=== PATIENT | male | born 1950 | race Caucasian/White ===

== ENCOUNTER 2022-11-15 12:07 | Outpatient (CLI) | payer MEDICARE ==
[2022-11-15 12:59] LABS: Hemoglobin 14.1 g/dL (13.5-17.5); Mean Corpuscular HGB CONC 33.2 g/dL (32.0-36.0); Mean Corpuscular Hemoglobin 29.3 pg (27.0-33.0); Mean Corpuscular Volume 88.4 fl (81.2-95.1); Mean Platelet Volume 9.2 fl (7.4-10.4); Platelet Count 380 10x3/uL (150-450); RBC Distribution Width 14.3 % (11.5-14.5); Red Blood Cell (RBC) Count 4.81 10x6/uL (4.32-5.72); White Blood Cell (WBC) Count 10.3 10x3/uL (3.5-10.5)
[2022-11-15 13:05] LABS: Bilirubin Neg (Negative); Blood, Urine 25 (Negative); Clarity Clear (Clear); Glucose, Urine (Dipstick) Normal (Negative); Ketone, Urine Negative (Negative); Leukocyte 100 (Negative); Nitrite Negative (Negative); Protein, Urine (Dipstick) Negative (Neg-Trace); Specific Gravity, Urine 1.015 (1.005-1.030); Urobilinogen Normal mg/dL (Less than 2)
[2022-11-15 13:26] LABS: Anion Gap 16 mmol/L (10-20); BUN (Urea Nitrogen) 18 mg/dL (8.4-25.7); Calc. Creatinine Clearance 0 mL/min (70-130); Calcium 10.7 mg/dL (7.8-10.44); Carbon Dioxide 27 mmol/L (23-31); Chloride 102 mmol/L (98-107); Estimated GFR 66; Glucose 126 mg/dL (80-115); Potassium 3.9 mmol/L (3.5-5.1); Sodium 141 mmol/L (136-145)
[2022-11-15 13:27] LABS: PTT 26.8 sec (22.0-33.0); Prothrombin Time 10.8 sec (9.5-12.1)
[2022-11-15 13:35] LABS: RBC/HPF 0-3 HPF (0-3)
[2022-11-15 13:36] LABS: Bacteria/HPF None Seen HPF (None Seen); Squamous Epithelial None Seen HPF (0-3)
== END 2022-11-15 12:08 | disposition home or self-care (01) ==
LOC: LABBT 12:07
PROVIDERS: ATTEND Urology
DX: Z01.818 Encounter for other preprocedural examination (principal); N35.913 Unspecified membranous urethral stricture, male
CPT/HCPCS: 80048; 81001; 85027; 85610; 85730; 87086; 93005; 93010

== ENCOUNTER 2022-11-26 05:52 | Day surgery (SDC) | payer OTHER ==
[2022-11-24 15:13] VITALS: BMI 27.5
[2022-11-26] MEDS ORDERED: Iopamidol 30 ML ONE (07:07)
[2022-11-26] MEDS ORDERED: Fentanyl 100 MCG/2 ML VIAL ONE ×2 (07:17)
[2022-11-26] MEDS ORDERED: Levofloxacin 500 mg/D5W 100 ml Premix Bag ONE (07:32)
[2022-11-26] MEDS ORDERED: PROPOFOL 200 MG/20 ML VIAL ONE (07:49)
[2022-11-26] MEDS ORDERED: ePHEDrine 50 MG/ML VIAL ONE (07:49)
[2022-11-26] MEDS ORDERED: Glycopyrrolate 0.2 MG/ML 5 ML SYRINGE ONE (07:49)
[2022-11-26] MEDS ORDERED: Dexamethasone 20 MG/5 ML VIAL ONE (07:49)
[2022-11-26] MEDS ORDERED: Ondansetron PF 4 MG/2 ML Vial ONE (07:49)
[2022-11-26] MEDS ORDERED: Lidocaine 1% PF 5 ML VIAL ONE (07:49)
[2022-11-26] MEDS ORDERED: Oxybutynin 5 MG TAB ONE (08:58)
== END 2022-11-26 11:36 | disposition home or self-care (01) ==
LOC: SDC 05:52
PROVIDERS: ATTEND Urology
PROC: 0T7D8ZZ Dilation of Urethra, Via Natural or Artificial Opening Endoscopic (ICD-10-PCS; principal; 2022-11-26)
DX: N35.913 Unspecified membranous urethral stricture, male (principal); I10 Essential (primary) hypertension; E78.00 Pure hypercholesterolemia, unspecified; Z85.46 Personal history of malignant neoplasm of prostate; Z79.899 Other long term (current) drug therapy
CPT/HCPCS: 74420; C1769; J1100; J1956; J2405; J2704; J3010; J3490; Q9967

== ENCOUNTER 2022-12-09 08:13 | Inpatient (IN) | payer OTHER ==
[2022-12-09] MEDS ORDERED: fentaNYL PF 100 MCG/2 ML SYRINGE ONE (08:24)
[2022-12-09] MEDS ORDERED: Iopamidol 45 ML ONE (08:36)
[2022-12-09] MEDS ORDERED: PHENYLEPHRINE-NS 100 MCG/ML 10 ML SYRINGE ONE (09:16)
[2022-12-09] MEDS ORDERED: Lidocaine 1% PF 5 ML VIAL ONE (09:16)
[2022-12-09] MEDS ORDERED: ePHEDrine 50 MG/ML VIAL ONE (09:16)
[2022-12-09] MEDS ORDERED: Ondansetron PF 4 MG/2 ML Vial ONE (09:16)
[2022-12-09] MEDS ORDERED: PROPOFOL 200 MG/20 ML VIAL ONE (09:16)
[2022-12-09] MEDS ORDERED: HYDROmorphone 2 MG/ML VIAL SLOW IVP PRN (09:34)
[2022-12-09] MEDS ORDERED: Meperidine HCl/PF 25 MG/ML VIAL SLOW IVP PRN (09:34)
[2022-12-09] MEDS ORDERED: Promethazine HCl 25 MG/ML VIAL IM PRN (09:34)
[2022-12-09 09:53] VITALS: BMI 28.4
[2022-12-09] MEDS ORDERED: Ondansetron ODT 4 MG TAB PO PRN (14:02)
[2022-12-09] MEDS ORDERED: Ondansetron PF 4 MG/2 ML Vial IVP PRN (14:02)
[2022-12-09] MEDS ORDERED: HYDROcodone/Acetaminophen 5/325 mg Tablet PO PRN (14:02)
[2022-12-09] MEDS ORDERED: Morphine 4 MG/ML VIAL SLOW IVP PRN (14:05)
[2022-12-09] MEDS ORDERED: Acetaminophen 325 MG TAB PO PRN (19:11)
[2022-12-10] MEDS ORDERED: Sodium Chloride 0.9% 500 ML IV SCH (00:45)
[2022-12-10] MEDS: Sodium Chloride 0.9% 1,000 ML IV SCH ×3 (01:07→15:40)
[2022-12-10 07:11] LABS: Anion Gap 15 mmol/L (10-20); BUN (Urea Nitrogen) 30 mg/dL (8.4-25.7); Calc. Creatinine Clearance 45 mL/min (70-130); Carbon Dioxide 16 mmol/L (23-31); Chloride 108 mmol/L (98-107); Estimated GFR 36; Glucose 204 mg/dL (80-115); Potassium 3.9 mmol/L (3.5-5.1); Sodium 135 mmol/L (136-145)
[2022-12-10 07:31] LABS: Band 34 % (5-11); Hemoglobin 11.6 g/dL (14.0-18.0); Lymphocytes 2 % (21-51); MDiff Complete? YES; Mean Corpuscular HGB CONC 33.6 g/dL (32.0-36.0); Mean Corpuscular Hemoglobin 31.5 pg (27.0-31.0); Mean Corpuscular Volume 93.9 fl (78.0-98.0); Mean Platelet Volume 7.5 fL (7.4-10.4); Monocytes 1 % (0-10); Myelocyte 6 % (0-0); Neutrophil 57 % (42-75); Platelet Count 201 10x3/uL (130-400); Platelet Morphology Comment Appears Adequate; Polychromasia SLIGHT = 2-3 cells (100X) (0-2/hpf); RBC Distribution Width 12.7 % (11.5-14.5); Red Blood Cell (RBC) Count 3.68 mill/uL (4.70-6.10); White Blood Cell (WBC) Count 41.4 10x3/uL (4.8-10.8)
[2022-12-10] MEDS: cefTRIAXone\\ROCEPHIN 1 GM in Sodium Chloride 0.9% 100 ML IVPB SCH (08:34)
[2022-12-11] MEDS: Sodium Chloride 0.9% 1,000 ML IV SCH ×2 (01:04→12:38)
[2022-12-11] MEDS: Sodium Chloride 0.65% Nasal 44 ML BOT EA NARE PRN ×2 (05:21→20:13)
[2022-12-11 07:22] LABS: Anion Gap 12 mmol/L (10-20); BUN (Urea Nitrogen) 21 mg/dL (8.4-25.7); Calc. Creatinine Clearance 74 mL/min (70-130); Carbon Dioxide 20 mmol/L (23-31); Chloride 109 mmol/L (98-107); Estimated GFR 66; Glucose 109 mg/dL (80-115); Potassium 3.6 mmol/L (3.5-5.1); Sodium 137 mmol/L (136-145)
[2022-12-11 08:14] LABS: Band 7 % (5-11); Hemoglobin 11.4 g/dL (14.0-18.0); Lymphocytes 3 % (21-51); MDiff Complete? YES; Mean Corpuscular HGB CONC 33.2 g/dL (32.0-36.0); Mean Corpuscular Hemoglobin 30.8 pg (27.0-31.0); Mean Corpuscular Volume 92.7 fl (78.0-98.0); Mean Platelet Volume 7.9 fL (7.4-10.4); Metamyelocyte 2 % (0-0); Monocytes 1 % (0-10); Neutrophil 87 % (42-75); Platelet Count 195 10x3/uL (130-400); Platelet Morphology Comment Appears Adequate; RBC Distribution Width 12.4 % (11.5-14.5); RBC Morphology Normal; White Blood Cell (WBC) Count 29.3 10x3/uL (4.8-10.8)
[2022-12-11] MEDS: cefTRIAXone\\ROCEPHIN 1 GM in Sodium Chloride 0.9% 100 ML IVPB SCH (08:44)
[2022-12-11] MEDS ORDERED: Sodium Chloride 0.9% 1,000 ML IV SCH (12:45)
[2022-12-11] MEDS: Cefdinir 300 MG CAP PO SCH (20:13)
[2022-12-12 08:39] LABS: Hemoglobin 12.1 g/dL (14.0-18.0); Mean Corpuscular HGB CONC 33.2 g/dL (32.0-36.0); Mean Corpuscular Hemoglobin 30.4 pg (27.0-31.0); Mean Corpuscular Volume 91.7 fl (78.0-98.0); Mean Platelet Volume 7.4 fL (7.4-10.4); Platelet Count 230 10x3/uL (130-400); RBC Distribution Width 12.2 % (11.5-14.5); Red Blood Cell (RBC) Count 3.99 mill/uL (4.70-6.10); White Blood Cell (WBC) Count 17.8 10x3/uL (4.8-10.8)
[2022-12-12] MEDS: Cefdinir 300 MG CAP PO SCH (08:48)
[2022-12-12 08:52] LABS: Anion Gap 13 mmol/L (10-20); BUN (Urea Nitrogen) 15 mg/dL (8.4-25.7); Calc. Creatinine Clearance 89 mL/min (70-130); Calcium 8.7 mg/dL (7.8-10.44); Carbon Dioxide 23 mmol/L (23-31); Chloride 107 mmol/L (98-107); Estimated GFR 81; Glucose 108 mg/dL (80-115); Potassium 3.5 mmol/L (3.5-5.1); Sodium 139 mmol/L (136-145)
[2022-12-12 09:21] LABS: Band 7 % (5-11); Lymphocytes 10 % (21-51); MDiff Complete? YES; Monocytes 2 % (0-10); Neutrophil 80 % (42-75); Platelet Morphology Comment Appears Adequate
[2022-12-12] MEDS ORDERED: Amlodipine 10 MG TAB PO SCH (12:15)
[2022-12-12 12:32] VITALS: BP 177/91
[2022-12-12 12:33] VITALS: TEMP 98.3
== END 2022-12-12 12:41 | disposition home or self-care (01) | DRG 872 ==
LOC: T4-B 08:16
PROVIDERS: ADMIT Internal Medicine; ATTEND Internal Medicine
PROC: BT1D1ZZ Fluoroscopy of Right Kidney, Ureter and Bladder using Low Osmolar Contrast (ICD-10-PCS; principal; 2022-12-09)
PROC: 0TJB8ZZ Inspection of Bladder, Via Natural or Artificial Opening Endoscopic (ICD-10-PCS; 2022-12-09)
PROC: 3E03329 Introduction of Other Anti-infective into Peripheral Vein, Percutaneous Approach (ICD-10-PCS; 2022-12-09)
DX: A41.51 Sepsis due to Escherichia coli [E. coli] (principal); N17.9 Acute kidney failure, unspecified; N13.6 Pyonephrosis; Z16.23 Resistance to quinolones and fluoroquinolones; Z16.29 Resistance to other single specified antibiotic; Z20.822 Contact with and (suspected) exposure to COVID-19; I10 Essential (primary) hypertension; R33.9 Retention of urine, unspecified; E78.00 Pure hypercholesterolemia, unspecified; R73.01 Impaired fasting glucose; Z79.899 Other long term (current) drug therapy; Z85.46 Personal history of malignant neoplasm of prostate; Z92.3 Personal history of irradiation; Z87.442 Personal history of urinary calculi
CPT/HCPCS: 36415; 80048; 83605; 85025; C1758; J0696; J2405; J2704; J3490; J7030; J7050; Q9967

== ENCOUNTER 2022-12-24 09:43 | Day surgery (SDC) | payer OTHER ==
[2022-12-22 12:24] VITALS: BMI 27.5
[2022-12-24] MEDS ORDERED: Iopamidol 0 ML ONE (11:49)
[2022-12-24] MEDS ORDERED: fentaNYL PF 100 MCG/2 ML SYRINGE ONE (11:52)
[2022-12-24] MEDS ORDERED: Sodium Chloride 0.9% 100 ML ONE (11:56)
[2022-12-24] MEDS ORDERED: cefTRIAXone (ROCEPHIN) 1 GM VIAL ONE (11:56)
[2022-12-24] MEDS ORDERED: Lidocaine 1% PF 5 ML VIAL ONE (12:12)
[2022-12-24] MEDS ORDERED: Rocuronium Bromide 10 MG/ML (10ML VIAL) ONE (12:12)
[2022-12-24] MEDS ORDERED: PROPOFOL 200 MG/20 ML VIAL ONE (12:12)
[2022-12-24] MEDS ORDERED: GLYCOPYRROLATE/PF 0.2 MG/ML VIAL ONE (12:12)
[2022-12-24] MEDS ORDERED: Dexamethasone 20 MG/5 ML VIAL ONE (12:12)
[2022-12-24] MEDS ORDERED: NEOSTIGMINE 3 MG/3 ML SYR 3 MG/3 ML SYRINGE ONE (12:12)
[2022-12-24] MEDS ORDERED: ePHEDrine Sulfate 50 MG/10 ML VIAL ONE (12:12)
[2022-12-24] MEDS ORDERED: Ondansetron PF 4 MG/2 ML Vial ONE (12:12)
[2022-12-24] MEDS ORDERED: SUGAMMADEX SODIUM 200 MG/2 ML VIAL ONE (14:22)
[2022-12-24] MEDS ORDERED: Phenazopyridine HCl 100 MG TAB ONE (14:55)
[2022-12-24] MEDS ORDERED: Oxybutynin 5 MG TAB ONE (14:56)
== END 2022-12-24 16:35 | disposition home or self-care (01) ==
LOC: SDC 09:43
PROVIDERS: ATTEND Urology
PROC: 0TC08ZZ Extirpation of Matter from Right Kidney, Via Natural or Artificial Opening Endoscopic (ICD-10-PCS; principal; 2022-12-24)
PROC: 0TC68ZZ Extirpation of Matter from Right Ureter, Via Natural or Artificial Opening Endoscopic (ICD-10-PCS; 2022-12-24)
PROC: 0T768DZ Dilation of Right Ureter with Intraluminal Device, Via Natural or Artificial Opening Endoscopic (ICD-10-PCS; 2022-12-24)
DX: N20.2 Calculus of kidney with calculus of ureter (principal); N35.813 Other membranous urethral stricture, male; N39.46 Mixed incontinence; N13.5 Crossing vessel and stricture of ureter without hydronephrosis; Z87.442 Personal history of urinary calculi; Z79.2 Long term (current) use of antibiotics; Z79.899 Other long term (current) drug therapy; Z79.82 Long term (current) use of aspirin; Z85.46 Personal history of malignant neoplasm of prostate
CPT/HCPCS: 52344; 52356; 74420; 82365; C1747; C1769; C2617; 88300; J0696; J1100; J2405; J2704; J3490; Q9967

== ENCOUNTER 2023-01-02 17:58 | Inpatient (IN) | payer OTHER ==
[~2023-01-02 17:58] MED LIST: Iopamidol 370 76% 100 ML VIAL ONE
[2023-01-02] MEDS ORDERED: Acetaminophen 500 MG TAB ONE (18:30)
[2023-01-02 18:40] LABS: #Eosinphils 0.1 thou/uL (0.0-0.7); #Monocytes 1.5 thou/uL (0.11-0.59); #Neutrophils 11.6 thou/uL (1.40-6.50); %Basophils 0.2 % (0.0-1.0); %Eosinophils 0.3 % (0.0-10.0); %Lymphocytes 7.2 % (21.0-51.0); %Monocytes 10.6 % (0.0-10.0); %Neutrophils 81.7 % (42.0-75.0); Hemoglobin 12.9 g/dL (14.0-18.0); Mean Corpuscular HGB CONC 33.8 g/dL (32.0-36.0); Mean Corpuscular Volume 91.6 fl (78.0-98.0); Mean Platelet Volume 6.9 fL (7.4-10.4); Platelet Count 328 10x3/uL (130-400); RBC Distribution Width 11.5 % (11.5-14.5); Red Blood Cell (RBC) Count 4.17 mill/uL (4.70-6.10); White Blood Cell (WBC) Count 14.2 10x3/uL (4.8-10.8)
[2023-01-02 18:52] LABS: INR-International Normal Ratio 1.2; Prothrombin Time 15.2 sec (12.0-14.7)
[2023-01-02 18:53] LABS: PTT 34.3 sec (22.9-36.1)
[2023-01-02 19:00] LABS: ALT (SGPT) 16 U/L (8-55); AST (SGOT) 19 U/L (5-34); Albumin 3.9 g/dL (3.4-4.8); Alkaline Phosphatase 70 U/L (40-110); Anion Gap 16 mmol/L (10-20); BUN (Urea Nitrogen) 16 mg/dL (8.4-25.7); Bilirubin, Total 0.8 mg/dL (0.2-1.2); Calc. Creatinine Clearance 0 mL/min (70-130); Calcium 9.5 mg/dL (7.8-10.44); Carbon Dioxide 23 mmol/L (23-31); Chloride 97 mmol/L (98-107); Estimated GFR 59; Globulin 4.1 g/dL (2.4-3.5); Glucose 156 mg/dL (80-115); Lipase 10 U/L (8-78); Potassium 3.9 mmol/L (3.5-5.1); Sodium 132 mmol/L (136-145)
[2023-01-02 19:08] LABS: Bacteria/HPF None Seen HPF (None Seen); Bilirubin Negative (Negative); Blood, Urine 1+ (Negative); Clarity Turbid (Clear); Glucose, Urine (Dipstick) Normal (Negative); Ketone, Urine 10 mg/dL (Negative); Leukocyte 500 Leu/uL (Negative); Nitrite Negative (Negative); Protein, Urine (Dipstick) 30 mg/dL (Neg-Trace); RBC/HPF 0-3 HPF (0-3); Squamous Epithelial None Seen HPF (0-3); Urobilinogen Normal mg/dL (Less than 2); WBC/HPF Greater than 50 HPF (0-3); pH, Urine 6.5 (5.0-9.0)
[2023-01-02] MEDS ORDERED: Cefepime 2 GM VIAL ONE (20:13)
[2023-01-02] MEDS ORDERED: Vancomycin 1 GM/200 ML (FROZEN) BAG ONE (21:10)
[2023-01-02] MEDS ORDERED: Senokot S 8.6-50 MG TAB PO PRN (22:28)
[2023-01-02] MEDS ORDERED: Acetaminophen 325 MG TAB PO PRN (22:28)
[2023-01-02] MEDS ORDERED: Ondansetron ODT 4 MG TAB PO PRN (22:28)
[2023-01-02] MEDS ORDERED: Amlodipine 5 MG TAB PO SCH (22:30)
[2023-01-02 22:43] LABS: Hemoglobin A1c 5.9 % (4.0-6.0)
[2023-01-03 00:17] VITALS: BMI 25.8
[2023-01-03 08:34] LABS: #Eosinphils 0.1 thou/uL (0.0-0.7); #Lymphocytes 1.6 thou/uL (1.20-3.40); #Monocytes 1.9 thou/uL (0.11-0.59); %Basophils 0.2 % (0.0-1.0); %Eosinophils 0.4 % (0.0-10.0); %Lymphocytes 11.2 % (21.0-51.0); %Monocytes 12.7 % (0.0-10.0); %Neutrophils 75.6 % (42.0-75.0); Hemoglobin 11.3 g/dL (14.0-18.0); Mean Corpuscular HGB CONC 33.3 g/dL (32.0-36.0); Mean Corpuscular Hemoglobin 30.3 pg (27.0-31.0); Mean Platelet Volume 7.8 fL (7.4-10.4); Platelet Count 324 10x3/uL (130-400); RBC Distribution Width 11.6 % (11.5-14.5); Red Blood Cell (RBC) Count 3.75 mill/uL (4.70-6.10); White Blood Cell (WBC) Count 14.6 10x3/uL (4.8-10.8)
[2023-01-03 10:15] LABS: Chloride 98 mmol/L (98-107); Potassium 3.3 mmol/L (3.5-5.1); Sodium 130 mmol/L (136-145)
[2023-01-03 10:16] LABS: Calcium 8.8 mg/dL (7.8-10.44); Glucose 178 mg/dL (80-115)
[2023-01-03 10:18] LABS: Anion Gap 10 mmol/L (10-20); Carbon Dioxide 25 mmol/L (23-31)
[2023-01-03] MEDS: Cefepime 1 GM in Sodium Chloride 0.9% 100 ML IVPB SCH ×2 (10:19→20:10)
[2023-01-03 10:20] LABS: BUN (Urea Nitrogen) 11 mg/dL (8.4-25.7); Calc. Creatinine Clearance 77 mL/min (70-130); Estimated GFR 78
[2023-01-03] MEDS: Famotidine 20 MG TAB PO SCH ×2 (10:20→20:10)
[2023-01-03] MEDS: Amlodipine 5 MG TAB PO SCH (10:20)
[2023-01-03] MEDS: Valsartan 80 MG TAB PO SCH (10:22)
[2023-01-04 07:10] LABS: #Eosinphils 0.2 thou/uL (0.0-0.7); #Lymphocytes 1.6 thou/uL (1.20-3.40); #Monocytes 1.6 thou/uL (0.11-0.59); #Neutrophils 8.4 thou/uL (1.40-6.50); %Basophils 0.1 % (0.0-1.0); %Eosinophils 1.6 % (0.0-10.0); %Lymphocytes 13.7 % (21.0-51.0); %Monocytes 13.4 % (0.0-10.0); %Neutrophils 71.2 % (42.0-75.0); Hemoglobin 11.6 g/dL (14.0-18.0); Mean Corpuscular HGB CONC 32.4 g/dL (32.0-36.0); Mean Corpuscular Hemoglobin 29.7 pg (27.0-31.0); Mean Corpuscular Volume 91.7 fl (78.0-98.0); Mean Platelet Volume 7.1 fL (7.4-10.4); Platelet Count 320 10x3/uL (130-400); RBC Distribution Width 11.5 % (11.5-14.5); Red Blood Cell (RBC) Count 3.92 mill/uL (4.70-6.10); White Blood Cell (WBC) Count 11.8 10x3/uL (4.8-10.8)
[2023-01-04 07:33] LABS: Anion Gap 14 mmol/L (10-20); BUN (Urea Nitrogen) 9 mg/dL (8.4-25.7); CRP (Inflammatory) 12.51 mg/dL (= or < 0.5); Calc. Creatinine Clearance 77 mL/min (70-130); Calcium 8.9 mg/dL (7.8-10.44); Carbon Dioxide 22 mmol/L (23-31); Chloride 101 mmol/L (98-107); Estimated GFR 78; Glucose 136 mg/dL (80-115); Potassium 3.4 mmol/L (3.5-5.1); Sodium 134 mmol/L (136-145)
[2023-01-04] MEDS: Amlodipine 5 MG TAB PO SCH (09:01)
[2023-01-04] MEDS: Valsartan 80 MG TAB PO SCH (09:02)
[2023-01-04] MEDS: Cefepime 1 GM in Sodium Chloride 0.9% 100 ML IVPB SCH ×2 (09:02→22:08)
[2023-01-04] MEDS: Famotidine 20 MG TAB PO SCH ×2 (09:02→22:08)
[2023-01-05 07:38] LABS: #Basophils 0.1 thou/uL (0.0-0.2); #Eosinphils 0.3 thou/uL (0.0-0.7); #Lymphocytes 1.8 thou/uL (1.20-3.40); #Monocytes 0.9 thou/uL (0.11-0.59); %Basophils 0.7 % (0.0-1.0); %Eosinophils 2.8 % (0.0-10.0); %Lymphocytes 18.3 % (21.0-51.0); %Monocytes 8.9 % (0.0-10.0); %Neutrophils 69.4 % (42.0-75.0); Hemoglobin 12.4 g/dL (14.0-18.0); Mean Corpuscular HGB CONC 33.7 g/dL (32.0-36.0); Mean Corpuscular Hemoglobin 30.8 pg (27.0-31.0); Mean Corpuscular Volume 91.3 fl (78.0-98.0); Mean Platelet Volume 6.9 fL (7.4-10.4); Platelet Count 342 10x3/uL (130-400); RBC Distribution Width 11.3 % (11.5-14.5); Red Blood Cell (RBC) Count 4.02 mill/uL (4.70-6.10); White Blood Cell (WBC) Count 10.1 10x3/uL (4.8-10.8)
[2023-01-05 08:06] LABS: Anion Gap 12 mmol/L (10-20); BUN (Urea Nitrogen) 12 mg/dL (8.4-25.7); Calc. Creatinine Clearance 80 mL/min (70-130); Carbon Dioxide 23 mmol/L (23-31); Chloride 106 mmol/L (98-107); Estimated GFR 82; Glucose 124 mg/dL (80-115); Potassium 3.7 mmol/L (3.5-5.1); Sodium 137 mmol/L (136-145)
[2023-01-05] MEDS: Valsartan 80 MG TAB PO SCH (09:27)
[2023-01-05] MEDS: Amlodipine 5 MG TAB PO SCH (09:28)
[2023-01-05] MEDS: Famotidine 20 MG TAB PO SCH ×2 (09:29→20:59)
[2023-01-05] MEDS: Cefepime 1 GM in Sodium Chloride 0.9% 100 ML IVPB SCH ×2 (09:29→20:59)
[2023-01-06 07:27] LABS: #Basophils 0.1 thou/uL (0.0-0.2); #Eosinphils 0.3 thou/uL (0.0-0.7); #Lymphocytes 2.1 thou/uL (1.20-3.40); #Monocytes 0.9 thou/uL (0.11-0.59); #Neutrophils 8.9 thou/uL (1.40-6.50); %Basophils 0.7 % (0.0-1.0); %Eosinophils 2.7 % (0.0-10.0); %Lymphocytes 17.3 % (21.0-51.0); %Neutrophils 72.2 % (42.0-75.0); Hemoglobin 12.9 g/dL (14.0-18.0); Mean Corpuscular HGB CONC 30.2 g/dL (32.0-36.0); Mean Corpuscular Hemoglobin 28.2 pg (27.0-31.0); Mean Corpuscular Volume 93.5 fl (78.0-98.0); Mean Platelet Volume 7.1 fL (7.4-10.4); Platelet Count 382 10x3/uL (130-400); RBC Distribution Width 11.7 % (11.5-14.5); Red Blood Cell (RBC) Count 4.57 mill/uL (4.70-6.10); White Blood Cell (WBC) Count 12.3 10x3/uL (4.8-10.8)
[2023-01-06 07:43] LABS: Anion Gap 14 mmol/L (10-20); BUN (Urea Nitrogen) 13 mg/dL (8.4-25.7); Calc. Creatinine Clearance 78 mL/min (70-130); Calcium 9.4 mg/dL (7.8-10.44); Carbon Dioxide 20 mmol/L (23-31); Chloride 105 mmol/L (98-107); Estimated GFR 79; Glucose 149 mg/dL (80-115); Potassium 3.8 mmol/L (3.5-5.1); Sodium 135 mmol/L (136-145)
[2023-01-06] MEDS: Famotidine 20 MG TAB PO SCH (08:29)
[2023-01-06] MEDS: Cefepime 1 GM in Sodium Chloride 0.9% 100 ML IVPB SCH (08:30)
[2023-01-06] MEDS: Amlodipine 5 MG TAB PO SCH (08:30)
[2023-01-06] MEDS: Valsartan 80 MG TAB PO SCH (08:32)
[2023-01-06 11:42] VITALS: BP 144/71; TEMP 97.7
== END 2023-01-06 12:50 | disposition home or self-care (01) | DRG 871 ==
LOC: ERS 17:58 → T4-B 22:07
PROVIDERS: ADMIT Student in an Organized Health Care Education/Training Program; ATTEND Hospitalist
DX: A41.52 Sepsis due to Pseudomonas (principal); N17.0 Acute kidney failure with tubular necrosis; E87.1 Hypo-osmolality and hyponatremia; N10 Acute pyelonephritis; N20.1 Calculus of ureter; A41.51 Sepsis due to Escherichia coli [E. coli]; I10 Essential (primary) hypertension; R73.9 Hyperglycemia, unspecified; E87.6 Hypokalemia; Z79.899 Other long term (current) drug therapy; Z85.46 Personal history of malignant neoplasm of prostate
CPT/HCPCS: 36415; 71045; 74177; 80048; 80053; 81003; 81015; 83036; 83605; 83690; 85025; 85610; 85730; 86140; 87040; 87077; 87086; 87186; 93005; 96365; 96367; J0692; J3370-JW; J3490; Q9967

== ENCOUNTER 2024-06-21 05:55 | Day surgery (SDC) | payer OTHER ==
[2024-06-08 08:19] VITALS: BMI 28.7
[2024-06-21] MEDS ORDERED: LevoFLOXacin D5W 500 mg (100 mL) BAG ONE (06:20)
[2024-06-21] MEDS ORDERED: PROPOFOL 20 ML ONE (07:19)
[2024-06-21] MEDS ORDERED: Ondansetron PF 4 MG/2 ML Vial ONE (07:19)
[2024-06-21] MEDS ORDERED: fentaNYL 50 mcg/mL 1 mL Vial ONE ×2 (07:19→08:59)
[2024-06-21] MEDS ORDERED: Rocuronium Bromide 10 MG/ML (10ML VIAL) ONE (07:19)
[2024-06-21] MEDS ORDERED: Lidocaine 1% PF 5 ML VIAL ONE (07:19)
[2024-06-21] MEDS ORDERED: Dexamethasone 20 MG/5 ML VIAL ONE (07:19)
[2024-06-21] MEDS ORDERED: SUGAMMADEX SODIUM 200 MG/2 ML VIAL ONE (09:05)
[2024-06-21] MEDS ORDERED: Triamcinolone 40 MG/ML VIAL ONE (09:10)
[2024-06-21] MEDS ORDERED: ePHEDrine Sulfate 50 MG/10 ML VIAL ONE (09:14)
[2024-06-21] MEDS ORDERED: Phenazopyridine HCl 100 MG TAB ONE (09:59)
[2024-06-21] MEDS ORDERED: Oxybutynin 5 MG TAB ONE (09:59)
== END 2024-06-21 11:43 | disposition home or self-care (01) ==
LOC: SDC 05:55
PROVIDERS: ATTEND Urology
PROC: 0TF78ZZ Fragmentation in Left Ureter, Via Natural or Artificial Opening Endoscopic (ICD-10-PCS; principal; 2024-06-21)
PROC: 0T778DZ Dilation of Left Ureter with Intraluminal Device, Via Natural or Artificial Opening Endoscopic (ICD-10-PCS; 2024-06-21)
DX: N20.0 Calculus of kidney (principal); R33.9 Retention of urine, unspecified; N13.5 Crossing vessel and stricture of ureter without hydronephrosis; N39.3 Stress incontinence (female) (male); C61 Malignant neoplasm of prostate; N30.41 Irradiation cystitis with hematuria; N39.41 Urge incontinence; Z92.3 Personal history of irradiation
CPT/HCPCS: 52283; 52356; 82365; C1726; C1769; C2617; J1100; J1956; J2405; J2704; J3010; J3301; 88300